=== PATIENT | male | born 1955 | race Caucasian/White ===

== ENCOUNTER 2016-11-11 09:58 | Emergency (ER) | payer OTHER ==
[~2016-11-11] VITALS: Ht 185.4 cm; Wt 81.6 kg
[~2016-11-11 09:58] MED LIST: AMITIZA24 MCG PO; AMOXICILLIN500 MG PO; AMOXIL500 M1 PO; ASPIRIN81 MG PO; AUGMENTIN 875 M1 TAB PO; BACTRIM DS 8001 TA1 PO; BACTROBAN OINT22 GM PO; CEPHALEXIN500 M1 PO; COMPAZINE10 MG PO; EES400 MG PO; ESIDREX,ORETIC,25 MG PO; FLONASE ALLERG9.9 ML NAS; HYDROCHLOROTHIA25 MG PO; LISINOPRIL10 M1 PO; LISINOPRIL10 MG PO; PLAVIX75 M1 PO; PLAVIX75 MG PO; PREDNICOT20 MG PO; PREDNISONE10 MG PO; PROTONIX40 MG PO; PROVENTIL0.09 MG/AC IH; RANITIDINE HCL150 M1 PO; RANITIDINE150 MG PO; ROBITUSSIN AC 110 ML PO; SUBOXONE 2 MG-1 EACH SL; SUBOXONE 8 MG-1 EACH SL; SUBOXONE PO; TYLENOL W/CODEI1 TA2 PO; ULTRAM50 MG PO; ZANTAC 150150 MG PO
[2016-11-11] MEDS ORDERED: ASPIRIN ADULT L81 M2 PO (10:14)
[2016-11-11] MEDS ORDERED: ZITHROMAX250 MG PO (11:29)
[2016-11-11] MEDS ORDERED: PROAIR HFA8.5 GM INH (11:29)
[2016-11-11] MEDS ORDERED: MEDROL DOSEPAK4 MG PO (11:29)
== END 2016-11-11 11:37 | disposition home or self-care (01) ==
LOC: ED 09:58
DX: J40 Bronchitis, not specified as acute or chronic (principal); F17.200 Nicotine dependence, unspecified, uncomplicated; Z79.899 Other long term (current) drug therapy; Z79.82 Long term (current) use of aspirin

== ENCOUNTER → 2017-01-15 | Outpatient (CLI) | payer OTHER ==
[~2017-01-15] MED LIST changes: +ASPIRIN ADULT L81 M2 PO; +MEDROL DOSEPAK4 MG PO; +PROAIR HFA8.5 GM INH; +ZITHROMAX250 MG PO
== END | disposition home or self-care (01) ==
LOC: US 01-03 11:00
DX: I73.9 Peripheral vascular disease, unspecified (principal); I10 Essential (primary) hypertension

== ENCOUNTER 2017-06-19 08:02 | Emergency (ER) | payer OTHER ==
[~2017-06-19] VITALS: Ht 185.4 cm; Wt 81.6 kg
[2017-06-19 08:53] LABS: BASO % 0.3 % (0.0-1.0); EOS # 0.1 10*3/uL (0.0-0.4); EOS % 0.5 % (1.0-4.0); HEMATOCRIT 41.9 % (42.0-52.0); HEMOGLOBIN 14.5 g/dl (14.0-18.0); LYMPH # 1.1 10*3/uL (1.3-4.4); MEAN CELL VOLUME 94.6 fl (80.0-94.0); MEAN CORPUSCULAR HGB 32.7 pg (27.0-31.0); MEAN CORPUSCULAR HGB CONC 34.6 g/dl (33.0-37.0); MEAN PLATELET VOLUME 9.6 fl (9.6-12.3); MONO # 1.4 10*3/uL (0.1-1.0); MONO % 10.4 % (3.0-9.0); NEUT # 10.7 10*3/uL (2.3-7.9); NEUT % 80.4 % (47.0-73.0); PLATELET COUNT AUTOMATED 261 10*3/uL (130-400); RED BLOOD COUNT 4.43 10*6/uL (4.50-5.90); RED CELL DISTRI WIDTH 12.5 % (0-14.5); WHITE BLOOD COUNT 13.3 10*3/uL (4.8-10.8)
[2017-06-19 09:01] LABS: ACT PARTIAL THROMBO TIME 28.6 SECONDS (20.8-31.5)
[2017-06-19 09:09] LABS: ALBUMIN 4.1 gm/dl (3.1-4.5); ALKALINE PHOSPHATASE 84 U/L (45-117); BUN 9 mg/dl (7-24); CHLORIDE 98 mmol/L (98-107); CKMB 1.4 ng/ml (0.5-3.6); CREATININE 0.92 mg/dL (0.70-1.30); LIPASE 176 U/L (73-393); POTASSIUM 4.3 mmol/L (3.5-5.1); SGOT/AST 14 IU/L (3-35); SGPT/ALT 21 U/L (12-78); SODIUM 136 mmol/L (136-145); TOTAL PROTEIN 8.4 gm/dL (6.4-8.2)
[2017-06-19 09:10] LABS: CPK 141 U/L (39-308)
[2017-06-19 09:14] LABS: TROPONIN I < 0.015 ng/ml (<0.045)
[2017-06-19] MEDS ORDERED: PREDNISONE50 MG PO (09:24)
[2017-06-19] MEDS ORDERED: ZITHROMAX250 MG PO (09:24)
== END 2017-06-19 10:11 | disposition home or self-care (01) ==
LOC: ED 08:02
PROVIDERS: Emergency Medicine
DX: J20.9 Acute bronchitis, unspecified (principal); F17.200 Nicotine dependence, unspecified, uncomplicated; Z79.82 Long term (current) use of aspirin; Z79.899 Other long term (current) drug therapy

== ENCOUNTER 2017-08-01 06:25 | Emergency (ER) | payer OTHER ==
[~2017-08-01] VITALS: Ht 185.4 cm; Wt 83.9 kg
[~2017-08-01 06:25] MED LIST changes: +PREDNISONE50 MG PO
[2017-08-01] MEDS ORDERED: MEDROL DOSEPAK4 MG PO (07:08)
[2017-08-01] MEDS ORDERED: AUGMENTIN 875-875 MG PO (07:08)
== END 2017-08-01 07:03 | disposition home or self-care (01) ==
LOC: ED 06:25
DX: J40 Bronchitis, not specified as acute or chronic (principal); J32.9 Chronic sinusitis, unspecified; Z79.82 Long term (current) use of aspirin; Z79.899 Other long term (current) drug therapy

== ENCOUNTER 2017-10-17 13:42 | Emergency (ER) | payer OTHER ==
[~2017-10-17] VITALS: Ht 185.4 cm; Wt 81.6 kg
[~2017-10-17 13:42] MED LIST changes: +AUGMENTIN 875-875 MG PO
[2017-10-17] MEDS ORDERED: OMNICEF300 MG PO (14:43)
== END 2017-10-17 14:51 | disposition home or self-care (01) ==
LOC: ED 13:42
DX: J32.0 Chronic maxillary sinusitis (principal); F17.200 Nicotine dependence, unspecified, uncomplicated; Z79.899 Other long term (current) drug therapy; Z79.82 Long term (current) use of aspirin

== ENCOUNTER 2017-12-17 11:17 | Emergency (ER) | payer OTHER ==
[~2017-12-17] VITALS: Ht 187.9 cm; Wt 86.2 kg
[~2017-12-17 11:17] MED LIST changes: +OMNICEF300 MG PO
[2017-12-17] MEDS ORDERED: AMOXICILLIN500 M2 PO (12:04)
== END 2017-12-17 12:11 | disposition home or self-care (01) ==
LOC: ED 11:17
DX: J02.9 Acute pharyngitis, unspecified (principal); F17.200 Nicotine dependence, unspecified, uncomplicated; Z79.899 Other long term (current) drug therapy; Z79.82 Long term (current) use of aspirin

== ENCOUNTER 2018-01-30 08:20 | Emergency (ER) | payer OTHER ==
[~2018-01-30] VITALS: Wt 83.9 kg
[~2018-01-30 08:20] MED LIST changes: +AMOXICILLIN500 M2 PO
[2018-01-30] MEDS ORDERED: ZITHROMAX250 MG PO (10:14)
[2018-01-30] MEDS ORDERED: PREDNISONE50 MG PO (10:14)
[2018-01-30] MEDS ORDERED: PROAIR HFA8.5 GM INH (10:15)
== END 2018-01-30 10:23 | disposition home or self-care (01) ==
LOC: ED 08:20
DX: J20.9 Acute bronchitis, unspecified (principal); Z79.82 Long term (current) use of aspirin; Z79.899 Other long term (current) drug therapy

== ENCOUNTER 2018-02-04 07:04 | Emergency (ER) | payer OTHER ==
[~2018-02-04] VITALS: Ht 185.4 cm; Wt 83.9 kg
[2018-02-04 08:07] LABS: BASO % 0.2 % (0.0-1.0); EOS # 0.1 10*3/uL (0.0-0.4); EOS % 0.6 % (1.0-4.0); HEMATOCRIT 45.1 % (42.0-52.0); HEMOGLOBIN 15.4 g/dl (14.0-18.0); LYMPH # 2.9 10*3/uL (1.3-4.4); LYMPH % 30.4 % (27.0-41.0); MEAN CELL VOLUME 95.3 fl (80.0-94.0); MEAN CORPUSCULAR HGB 32.6 pg (27.0-31.0); MEAN CORPUSCULAR HGB CONC 34.1 g/dl (33.0-37.0); MEAN PLATELET VOLUME 9.1 fl (9.6-12.3); MONO # 1.1 10*3/uL (0.1-1.0); NEUT # 5.5 10*3/uL (2.3-7.9); NEUT % 56.8 % (47.0-73.0); PLATELET COUNT AUTOMATED 328 10*3/uL (130-400); RED BLOOD COUNT 4.73 10*6/uL (4.50-5.90); RED CELL DISTRI WIDTH 12.6 % (0-14.5); WHITE BLOOD COUNT 9.7 10*3/uL (4.8-10.8)
[2018-02-04 08:18] LABS: ACT PARTIAL THROMBO TIME 25.3 SECONDS (20.8-31.5); INTERNATIONAL NORM RATIO 0.9 (2.0-3.5)
[2018-02-04 08:25] LABS: ALBUMIN 4.2 gm/dl (3.1-4.5); ALKALINE PHOSPHATASE 64 U/L (45-117); BUN 14 mg/dl (7-24); CHLORIDE 99 mmol/L (98-107); CREATININE 0.98 mg/dL (0.70-1.30); LIPASE 202 U/L (73-393); POTASSIUM 3.8 mmol/L (3.5-5.1); SGOT/AST 10 IU/L (3-35); SGPT/ALT 19 U/L (12-78); SODIUM 135 mmol/L (136-145); TOTAL PROTEIN 7.8 gm/dL (6.4-8.2)
[2018-02-04 08:29] LABS: TROPONIN I < 0.015 ng/ml (<0.045)
[2018-02-04] MEDS ORDERED: PREDNISONE10 MG PO (08:40)
[2018-02-04] MEDS ORDERED: GUAIFENESIN600 MG PO (08:40)
== END 2018-02-04 08:35 | disposition home or self-care (01) ==
LOC: ED 07:04
PROVIDERS: Emergency Medicine
DX: J20.9 Acute bronchitis, unspecified (principal); Z79.899 Other long term (current) drug therapy; Z79.82 Long term (current) use of aspirin

== ENCOUNTER 2018-06-22 13:48 | Emergency (ER) | payer OTHER ==
[~2018-06-22] VITALS: Ht 185.4 cm; Wt 83.9 kg
[~2018-06-22 13:48] MED LIST changes: +GUAIFENESIN600 MG PO
[2018-06-22] MEDS ORDERED: ZITHROMAX250 MG PO (14:07)
[2018-06-22] MEDS ORDERED: PREDNISONE10 MG PO (14:07)
== END 2018-06-22 15:55 | disposition home or self-care (01) ==
LOC: ED 13:48
DX: J02.9 Acute pharyngitis, unspecified (principal); R05 Cough; R06.2 Wheezing; R53.1 Weakness; J44.9 Chronic obstructive pulmonary disease, unspecified; F17.200 Nicotine dependence, unspecified, uncomplicated; Z79.899 Other long term (current) drug therapy; Z79.82 Long term (current) use of aspirin

== ENCOUNTER 2018-07-05 02:48 | Emergency (ER) | payer OTHER ==
[~2018-07-05] VITALS: Ht 185.4 cm; Wt 83.9 kg
== END 2018-07-05 03:29 | disposition home or self-care (01) ==
LOC: ED 02:48
DX: R04.0 Epistaxis (principal); F17.200 Nicotine dependence, unspecified, uncomplicated; Z79.899 Other long term (current) drug therapy; Z79.82 Long term (current) use of aspirin

== ENCOUNTER 2018-08-01 14:52 | Emergency (ER) | payer OTHER ==
[~2018-08-01] VITALS: Ht 185.4 cm; Wt 81.6 kg
[2018-08-01] MEDS ORDERED: DELTASONE20 M1 PO (15:07)
[2018-08-01] MEDS ORDERED: VIBRAMYCIN100 MG PO (15:07)
== END 2018-08-01 15:40 | disposition home or self-care (01) ==
LOC: ED 14:52
DX: J40 Bronchitis, not specified as acute or chronic (principal); R52 Pain, unspecified; F17.200 Nicotine dependence, unspecified, uncomplicated; Z79.2 Long term (current) use of antibiotics; Z79.82 Long term (current) use of aspirin; Z79.899 Other long term (current) drug therapy

== ENCOUNTER 2018-08-06 09:47 | Emergency (ER) | payer OTHER ==
[~2018-08-06] VITALS: Ht 185.4 cm; Wt 83.9 kg
[~2018-08-06 09:47] MED LIST changes: +DELTASONE20 M1 PO; +VIBRAMYCIN100 MG PO
[2018-08-06] MEDS ORDERED: PREDNISONE10 MG PO (10:08)
== END 2018-08-06 11:01 | disposition home or self-care (01) ==
LOC: ED 09:47
DX: J20.9 Acute bronchitis, unspecified (principal); Z79.899 Other long term (current) drug therapy; Z79.82 Long term (current) use of aspirin

== ENCOUNTER 2018-10-19 | Emergency (ER) | payer OTHER ==
[2018-10-19] MEDS ORDERED: FLONASE ALLERG9.9 ML NAS (09:38)
[2018-10-19] MEDS ORDERED: PREDNISONE10 MG PO (09:38)
[2018-10-19] MEDS ORDERED: CLARITIN10 MG PO (09:38)
[2019-03-19] MEDS ORDERED: ZITHROMAX250 MG PO (12:33)
[2019-03-19] MEDS ORDERED: PREDNISONE10 MG PO (12:33)
[2019-05-02] MEDS ORDERED: PREDNISONE50 MG PO (08:52)
== END 2018-10-19 11:04 | disposition home or self-care (01) ==
DX: J20.9 Acute bronchitis, unspecified (principal); R03.0 Elevated blood-pressure reading, without diagnosis of hypertension; F17.200 Nicotine dependence, unspecified, uncomplicated; Z79.899 Other long term (current) drug therapy; Z79.82 Long term (current) use of aspirin

== ENCOUNTER 2018-12-31 13:00 | Emergency (ER) | payer OTHER ==
[~2018-12-31] VITALS: Ht 185.4 cm; Wt 81.6 kg
[~2018-12-31 13:00] MED LIST changes: +CLARITIN10 MG PO
[2019-03-19] MEDS ORDERED: ZITHROMAX250 MG PO (12:33)
[2019-03-19] MEDS ORDERED: PREDNISONE10 MG PO (12:33)
[2019-05-02] MEDS ORDERED: PREDNISONE50 MG PO (08:52)
== END 2018-12-31 14:02 | disposition left against medical advice (07) ==
LOC: ED 13:00
DX: J02.9 Acute pharyngitis, unspecified (principal); R53.1 Weakness; R05 Cough; Z53.21 Procedure and treatment not carried out due to patient leaving prior to being seen by health care provider

== ENCOUNTER 2019-01-13 10:35 | Emergency (ER) | payer OTHER ==
[~2019-01-13] VITALS: Ht 185.4 cm; Wt 81.6 kg
[2019-01-13 11:16] LABS: HEMATOCRIT 47.8 % (42.0-52.0); HEMOGLOBIN 16.7 g/dl (14.0-18.0); MEAN CELL VOLUME 95.6 fl (80.0-94.0); MEAN CORPUSCULAR HGB 33.4 pg (27.0-31.0); MEAN CORPUSCULAR HGB CONC 34.9 g/dl (33.0-37.0); MEAN PLATELET VOLUME 9.2 fl (9.6-12.3); PLATELET COUNT AUTOMATED 316 10*3/uL (130-400); RED CELL DISTRI WIDTH 13.2 % (0-14.5); WHITE BLOOD COUNT 17.6 10*3/uL (4.8-10.8)
[2019-01-13 11:34] LABS: ALBUMIN 3.8 gm/dl (3.1-4.5); ALKALINE PHOSPHATASE 67 U/L (45-117); BUN 25 mg/dl (7-24); CHLORIDE 99 mmol/L (98-107); CREATININE 0.96 mg/dL (0.70-1.30); LIPASE 133 U/L (73-393); POTASSIUM 3.8 mmol/L (3.5-5.1); SGOT/AST 13 IU/L (3-35); SGPT/ALT 22 U/L (12-78); SODIUM 134 mmol/L (136-145); TOTAL PROTEIN 7.4 gm/dL (6.4-8.2)
[2019-01-13 11:38] LABS: PLATELET SUFFICIENCY NORMAL (NORMAL); TOTAL CELLS COUNTED 100 #CELLS
[2019-01-13 11:48] LABS: BILIRUBIN NEGATIVE (NEGATIVE); BLOOD TRACE-LYSED (NEGATIVE); CLARITY CLEAR (CLEAR); COLOR YELLOW (YELLOW); GLUCOSE NEGATIVE (NEGATIVE); KETONE TRACE (NEGATIVE); LEUKO ESTERASE NEGATIVE (NEGATIVE); NITRITE NEGATIVE (NEGATIVE); PH 5.5 (5.0-9.0); UROBILINOGEN 0.2 E.U./dl (0.2-1.0)
[2019-01-13 12:01] LABS: BACTERIA 1+; MUCOUS 2+; RBC 0-2 rbc/hpf (0-2)
[2019-01-13] MEDS ORDERED: ZOFRAN4 MG PO (12:38)
[2019-03-19] MEDS ORDERED: PREDNISONE10 MG PO (12:33)
[2019-03-19] MEDS ORDERED: ZITHROMAX250 MG PO (12:33)
[2019-05-02] MEDS ORDERED: PREDNISONE50 MG PO (08:52)
== END 2019-01-13 12:41 | disposition left against medical advice (07) ==
LOC: ED 10:35
PROVIDERS: Nurse Practitioner Family
DX: R11.2 Nausea with vomiting, unspecified (principal); R19.7 Diarrhea, unspecified; R10.32 Left lower quadrant pain; I10 Essential (primary) hypertension; F17.200 Nicotine dependence, unspecified, uncomplicated; Z79.82 Long term (current) use of aspirin; Z79.899 Other long term (current) drug therapy; Z86.73 Personal history of transient ischemic attack (TIA), and cerebral infarction without residual deficits

== ENCOUNTER 2019-07-14 08:07 | Emergency (ER) | payer OTHER ==
[~2019-07-14] VITALS: Ht 185.4 cm; Wt 81.6 kg
[~2019-07-14 08:07] MED LIST changes: +ZOFRAN4 MG PO
== END 2019-07-14 09:07 | disposition left against medical advice (07) ==
LOC: ED 08:07
DX: R05 Cough (principal); R52 Pain, unspecified; J44.9 Chronic obstructive pulmonary disease, unspecified; I10 Essential (primary) hypertension; Z79.899 Other long term (current) drug therapy; Z79.82 Long term (current) use of aspirin

== ENCOUNTER 2019-11-14 09:19 | Emergency (ER) | payer OTHER ==
[~2019-11-14] VITALS: Ht 185.4 cm; Wt 79.4 kg
[2019-11-14] MEDS ORDERED: ZITHROMAX250 MG PO (09:32)
[2019-11-14] MEDS ORDERED: MEDROL DOSEPAK4 MG PO (09:32)
== END 2019-11-14 09:38 | disposition home or self-care (01) ==
LOC: ED 09:19
DX: J44.9 Chronic obstructive pulmonary disease, unspecified (principal); I10 Essential (primary) hypertension; I73.9 Peripheral vascular disease, unspecified; F17.200 Nicotine dependence, unspecified, uncomplicated; Z79.899 Other long term (current) drug therapy; Z79.2 Long term (current) use of antibiotics; Z79.82 Long term (current) use of aspirin; Z86.73 Personal history of transient ischemic attack (TIA), and cerebral infarction without residual deficits

== ENCOUNTER 2019-11-20 09:28 | Emergency (ER) | payer OTHER ==
[~2019-11-20] VITALS: Ht 185.4 cm; Wt 79.4 kg
[2019-11-20] MEDS ORDERED: DOXYCYCLINE100 M3 PO (10:32)
[2019-11-20] MEDS ORDERED: PROVENTIL HFA6.7 GM INH (10:32)
[2019-11-20] MEDS ORDERED: TESSALON PERLE100 M1 PO (10:32)
[2019-11-20] MEDS ORDERED: PREDNISONE10 MG PO (10:32)
== END 2019-11-20 10:57 | disposition home or self-care (01) ==
LOC: ED 09:28
DX: J18.9 Pneumonia, unspecified organism (principal); I10 Essential (primary) hypertension; J44.9 Chronic obstructive pulmonary disease, unspecified; I73.9 Peripheral vascular disease, unspecified; F17.200 Nicotine dependence, unspecified, uncomplicated; Z79.899 Other long term (current) drug therapy; Z79.2 Long term (current) use of antibiotics; Z79.82 Long term (current) use of aspirin; Z86.73 Personal history of transient ischemic attack (TIA), and cerebral infarction without residual deficits

== ENCOUNTER 2020-02-19 14:13 | Emergency (ER) | payer OTHER ==
[~2020-02-19] VITALS: Ht 185.4 cm; Wt 81.6 kg
[~2020-02-19 14:13] MED LIST changes: +DOXYCYCLINE100 M3 PO; +PROVENTIL HFA6.7 GM INH; +TESSALON PERLE100 M1 PO
[2020-02-19] MEDS ORDERED: CEPHALEXIN500 M1 PO (14:37)
== END 2020-02-19 14:37 | disposition home or self-care (01) ==
LOC: ED 14:13
DX: L03.90 Cellulitis, unspecified (principal); I10 Essential (primary) hypertension; J44.9 Chronic obstructive pulmonary disease, unspecified; Z79.899 Other long term (current) drug therapy; Z79.2 Long term (current) use of antibiotics

== ENCOUNTER 2021-05-08 10:35 | Emergency (ER) | payer OTHER ==
[~2021-05-08] VITALS: Wt 81.6 kg
[2021-05-08 11:36] LABS: BASO % 0.3 % (0.0-1.0); EOS % 0.3 % (1.0-4.0); HEMATOCRIT 43.5 % (42.0-52.0); LYMPH # 1.3 10*3/uL (1.3-4.4); LYMPH % 14.4 % (27.0-41.0); MEAN CELL VOLUME 95.2 fl (80.0-94.0); MEAN CORPUSCULAR HGB CONC 34.7 g/dl (33.0-37.0); MEAN PLATELET VOLUME 9.1 fl (9.6-12.3); MONO # 1.3 10*3/uL (0.1-1.0); MONO % 14.1 % (3.0-9.0); NEUT # 6.4 10*3/uL (2.3-7.9); NEUT % 70.5 % (47.0-73.0); PLATELET COUNT AUTOMATED 305 10*3/uL (130-400); RED BLOOD COUNT 4.57 10*6/uL (4.50-5.90); RED CELL DISTRI WIDTH 12.6 % (0-14.5); WHITE BLOOD COUNT 9.1 10*3/uL (4.8-10.8)
[2021-05-08 11:51] LABS: ALBUMIN 3.7 gm/dl (3.1-4.5); ALKALINE PHOSPHATASE 86 U/L (45-117); BUN 11 mg/dl (7-24); CHLORIDE 102 mmol/L (98-107); CREATININE 0.91 mg/dL (0.70-1.30); SGOT/AST 16 IU/L (3-35); SGPT/ALT 21 U/L (12-78); SODIUM 133 mmol/L (136-145); TOTAL PROTEIN 7.6 gm/dL (6.4-8.2)
[2021-05-08 11:53] LABS: TROPONIN I < 0.015 ng/ml (<0.045)
== END 2021-05-08 12:48 | disposition home or self-care (01) ==
LOC: ED 10:35
PROVIDERS: Physician Assistant
DX: R20.2 Paresthesia of skin (principal); Z86.73 Personal history of transient ischemic attack (TIA), and cerebral infarction without residual deficits; Z79.82 Long term (current) use of aspirin; Z79.899 Other long term (current) drug therapy

== ENCOUNTER 2021-11-01 10:48 | Emergency (ER) | payer OTHER ==
[~2021-11-01] VITALS: Wt 81.6 kg
== END 2021-11-01 13:31 | disposition home or self-care (01) ==
LOC: ED 10:48
DX: J02.9 Acute pharyngitis, unspecified (principal); Z79.899 Other long term (current) drug therapy; Z79.82 Long term (current) use of aspirin

== ENCOUNTER → 2021-11-01 | Outpatient (CLI) | payer OTHER | END | disposition home or self-care (01) | LOC: COVID19 17:04 | PROVIDERS: ATTEND Internal Medicine | DX: U07.1 COVID-19 (principal) ==

== ENCOUNTER 2023-11-18 17:04 | Emergency (ER) | payer OTHER ==
[~2023-11-18] VITALS: Ht 185.4 cm; Wt 81.6 kg
[2023-11-18 18:44] LABS: BASO % 0.4 % (0.0-1.0); EOS % 0.5 % (1.0-4.0); LYMPH # 0.4 10*3/uL (1.3-4.4); LYMPH % 4.9 % (27.0-41.0); MEAN CELL VOLUME 96.8 fl (80.0-94.0); MEAN CORPUSCULAR HGB 32.3 pg (27.0-31.0); MEAN CORPUSCULAR HGB CONC 33.3 g/dl (33.0-37.0); MEAN PLATELET VOLUME 9.1 fl (9.6-12.3); MONO # 0.8 10*3/uL (0.1-1.0); MONO % 10.7 % (3.0-9.0); NEUT # 6.3 10*3/uL (2.3-7.9); NEUT % 83.2 % (47.0-73.0); PLATELET COUNT AUTOMATED 299 10*3/uL (130-400); RED BLOOD COUNT 4.34 10*6/uL (4.50-5.90); RED CELL DISTRI WIDTH 12.6 % (0-14.5); WHITE BLOOD COUNT 7.6 10*3/uL (4.8-10.8)
[2023-11-18 19:04] LABS: ALKALINE PHOSPHATASE 83 U/L (46-116); BUN 16 mg/dl (9-23); CHLORIDE 101 mmol/L (98-107); POTASSIUM 4.2 mmol/L (3.4-5.1); SGPT/ALT 18 U/L (5-49); TOTAL PROTEIN 7.5 gm/dL (6.0-8.0)
[2023-11-18] MEDS ORDERED: PREDNISONE50 MG PO (20:06)
[2023-11-18] MEDS ORDERED: AVPAK AZITHROM250 M1 PO (20:06)
== END 2023-11-18 20:27 | disposition home or self-care (01) ==
LOC: ED 17:04
PROVIDERS: Physician Assistant Medical
DX: J44.1 Chronic obstructive pulmonary disease with (acute) exacerbation (principal); Z20.822 Contact with and (suspected) exposure to COVID-19; I10 Essential (primary) hypertension; Z98.890 Other specified postprocedural states; F17.210 Nicotine dependence, cigarettes, uncomplicated

== ENCOUNTER → 2025-01-14 | Outpatient (CLI) | payer OTHER ==
[~2025-01-14] MED LIST changes: +AVPAK AZITHROM250 M1 PO
== END | disposition home or self-care (01) ==
LOC: LAB 14:06
PROVIDERS: ATTEND Nurse Practitioner Family
DX: I65.23 Occlusion and stenosis of bilateral carotid arteries (principal)

== ENCOUNTER 2025-01-22 10:24 | Emergency (ER) | payer OTHER ==
[~2025-01-22] VITALS: Ht 185.4 cm; Wt 79.4 kg
[2025-01-22] MEDS ORDERED: Lopressor25 MG PO (11:21)
[2025-01-22] MEDS ORDERED: Albuterol Sulf/Ipratropium 3 ML VIAL NEB ONE (11:30)
[2025-01-22] MEDS ORDERED: methylPREDNISolone sod succ 125 MG VIAL IM ONE (11:30)
[2025-01-22 12:06] LABS: BASO % 0.2 % (0.0-1.0); HEMATOCRIT 45.1 % (42.0-52.0); MEAN CELL VOLUME 95.3 fl (80.0-94.0); MEAN CORPUSCULAR HGB 32.1 pg (27.0-31.0); MEAN CORPUSCULAR HGB CONC 33.7 g/dl (33.0-37.0); MEAN PLATELET VOLUME 8.9 fl (9.6-12.3); MONO % 9.5 % (3.0-9.0); NEUT # 8.4 10*3/uL (2.3-7.9); NEUT % 81.1 % (47.0-73.0); PLATELET COUNT AUTOMATED 347 10*3/uL (130-400); RED BLOOD COUNT 4.73 10*6/uL (4.50-5.90); RED CELL DISTRI WIDTH 12.6 % (0-14.5); WHITE BLOOD COUNT 10.3 10*3/uL (4.8-10.8)
[2025-01-22 12:31] LABS: BUN 10 mg/dl (9-23); CHLORIDE 93 mmol/L (98-107); POTASSIUM 4.1 mmol/L (3.4-5.1)
== END 2025-01-22 13:10 | disposition home or self-care (01) ==
LOC: ED 10:24
PROVIDERS: Physician Assistant Medical
DX: J44.1 Chronic obstructive pulmonary disease with (acute) exacerbation (principal); Z20.822 Contact with and (suspected) exposure to COVID-19; I10 Essential (primary) hypertension; F17.200 Nicotine dependence, unspecified, uncomplicated; Z79.899 Other long term (current) drug therapy; Z79.82 Long term (current) use of aspirin; Z95.820 Peripheral vascular angioplasty status with implants and grafts

== ENCOUNTER 2025-01-26 12:42 | Inpatient (IN) | payer OTHER ==
[~2025-01-26] VITALS: Ht 185.4 cm; Wt 79.0 kg
[~2025-01-26 12:42] MED LIST changes: +Lopressor25 MG PO
[2025-01-26 12:54] VITALS: BP 150/76
[2025-01-26] MEDS ORDERED: SODIUM CHLORIDE 0.9% 1,000 ML IV ONE (13:05)
[2025-01-26] MEDS ORDERED: Albuterol Sulf/Ipratropium 3 ML VIAL NEB ONE (13:05)
[2025-01-26] MEDS ORDERED: methylPREDNISolone sod succ 125 MG VIAL IV ONE (13:05)
[2025-01-26 13:21] LABS: HEMATOCRIT 46.2 % (42.0-52.0); MEAN CELL VOLUME 92.2 fl (80.0-94.0); MEAN CORPUSCULAR HGB 32.9 pg (27.0-31.0); MEAN CORPUSCULAR HGB CONC 35.7 g/dl (33.0-37.0); MEAN PLATELET VOLUME 8.8 fl (9.6-12.3); PLATELET COUNT AUTOMATED 419 10*3/uL (130-400); RED BLOOD COUNT 5.01 10*6/uL (4.50-5.90); RED CELL DISTRI WIDTH 12.1 % (0-14.5); WHITE BLOOD COUNT 10.7 10*3/uL (4.8-10.8)
[2025-01-26] MEDS ORDERED: BREYNA 160-4.10.3 GM INH (13:21)
[2025-01-26] MEDS ORDERED: SPIRIVA RESPIMAT4 GM INH (13:22)
[2025-01-26 13:24] LABS: MANUAL DIFF REFLEX YES
[2025-01-26 13:43] LABS: BUN 14 mg/dl (9-23); CHLORIDE 88 mmol/L (98-107); CPK 78 U/L (34-171); POTASSIUM 3.3 mmol/L (3.4-5.1)
[2025-01-26 13:45] LABS: ATYPICAL LYMPHS 2 % (0-0); TOTAL CELLS COUNTED 100 #CELLS
[2025-01-26 13:46] LABS: PLATELET SUFFICIENCY NORMAL (NORMAL)
[2025-01-26] MEDS ORDERED: Ondansetron Hydrochloride 4 MG/2 ML VIAL IV PRN (15:50)
[2025-01-26] MEDS ORDERED: MORPHINE Sulfate 2 MG/ML SYR IV PRN (15:50)
[2025-01-26] MEDS ORDERED: Acetaminophen/Hydrocodone 5 MG/325 MG TABLET PO PRN (15:50)
[2025-01-26] MEDS ORDERED: ATORVASTATIN CA10 M1 PO (15:59)
[2025-01-26] MEDS ORDERED: DOCUSATE SOD100 MG PO (16:00)
[2025-01-26] MEDS ORDERED: Albuterol Sulf/Ipratropium 3 ML VIAL NEB SCH (16:00)
[2025-01-26] MEDS ORDERED: diazePAM 10 MG/2 ML SYR IV ONE (16:00)
[2025-01-26] MEDS ORDERED: POTASSIUM CHLORIDE 20 MEQ TAB PO ONE (16:10)
[2025-01-26] MEDS ORDERED: cefTRIAXone Sodium 10 ML IV ONE (16:10)
[2025-01-26 16:43] LABS: BILIRUBIN Negative (Negative); BLOOD Negative (Negative); CLARITY Clear (Clear); COLOR Yellow (Yellow); GLUCOSE Trace (Negative); KETONE Trace (Negative); LEUKO ESTERASE Trace (Negative); NITRITE Negative (Negative); PH 6.5 (4.5-8.0)
[2025-01-26] MEDS ORDERED: AZITHROMYCIN 250 ML IV SCH (17:00)
[2025-01-26 17:20] VITALS: BP 171/89
[2025-01-26 17:36] VITALS: BP 175/78
[2025-01-26] MEDS ORDERED: BUPRENORPHINE HCL/NALOXONE 8 MG-2 MG SL TABLET SL SCH (18:00)
[2025-01-26] MEDS ORDERED: Lubiprostone 24 MCG CAP PO SCH (18:00)
[2025-01-26 20:00] VITALS: BP 150/68
[2025-01-26] MEDS ORDERED: methylPREDNISolone sod succ 40 MG VIAL IV SCH (22:00)
[2025-01-26] MEDS ORDERED: Metoprolol Tartrate 25 MG TAB PO SCH (22:00)
[2025-01-26] MEDS ORDERED: GUAIFENESIN 600 MG TAB ER PO SCH (22:00)
[2025-01-26] MEDS ORDERED: Nicotine 21 MG PATCH T SCH (22:15)
[2025-01-27] VITALS: BP 164/88
[2025-01-27] MEDS ORDERED: Pantoprazole Sodium 40 MG TAB PO SCH (06:00)
[2025-01-27 06:15] LABS: BUN 13 mg/dl (9-23); CHLORIDE 93 mmol/L (98-107); CHOLESTEROL 148 mg/dL (<200); LDL CHOLESTEROL 75 mg/dL (9-159); POTASSIUM 3.2 mmol/L (3.4-5.1); SGPT/ALT 12 U/L (5-49); TOTAL PROTEIN 7.1 gm/dL (6.0-8.0); TRIGLYCERIDES 54 mg/dl (<150)
[2025-01-27 06:16] LABS: ALKALINE PHOSPHATASE 71 U/L (46-116)
[2025-01-27 06:22] LABS: BASO % 0.1 % (0.0-1.0); HEMATOCRIT 43.3 % (42.0-52.0); MEAN CELL VOLUME 92.9 fl (80.0-94.0); MEAN CORPUSCULAR HGB 33.3 pg (27.0-31.0); MEAN CORPUSCULAR HGB CONC 35.8 g/dl (33.0-37.0); MEAN PLATELET VOLUME 9.4 fl (9.6-12.3); MONO # 1.4 10*3/uL (0.1-1.0); MONO % 8.5 % (3.0-9.0); NEUT # 13.8 10*3/uL (2.3-7.9); NEUT % 84.4 % (47.0-73.0); PLATELET COUNT AUTOMATED 383 10*3/uL (130-400); RED BLOOD COUNT 4.66 10*6/uL (4.50-5.90); RED CELL DISTRI WIDTH 12.3 % (0-14.5); WHITE BLOOD COUNT 16.3 10*3/uL (4.8-10.8)
[2025-01-27] MEDS ORDERED: POTASSIUM CHLORIDE 20 MEQ TAB PO ONE (07:05)
[2025-01-27 08:00] VITALS: BP 177/90
[2025-01-27] MEDS ORDERED: SODIUM CHLORIDE 0.9% 1,000 ML IV ONE (08:10)
[2025-01-27] MEDS ORDERED: Clopidogrel Hydrogen Sulfate 75 MG TAB PO SCH (10:00)
[2025-01-27] MEDS ORDERED: Nicotine 21 MG PATCH T SCH (10:00)
[2025-01-27] MEDS ORDERED: ASPIRIN ENTERIC COATED 81 MG TAB PO SCH (10:00)
[2025-01-27] MEDS ORDERED: DOCUSATE SODIUM 100 MG CAP PO SCH (10:00)
[2025-01-27] MEDS ORDERED: Enoxaparin Sodium 40 MG/0.4 ML SYR SC SCH (10:00)
[2025-01-27 12:00] VITALS: BP 169/80
[2025-01-27 16:00] VITALS: BP 157/85
[2025-01-27] MEDS ORDERED: cefTRIAXone Sodium 1 GM in SYRINGE INFUSION 10 ML IV SCH (16:00)
[2025-01-27] MEDS ORDERED: AZITHROMYCIN 250 ML IV SCH (17:00)
[2025-01-27 20:00] VITALS: BP 157/88
[2025-01-28] VITALS: BP 175/86
[2025-01-28 06:17] LABS: BASO % 0.1 % (0.0-1.0); HEMATOCRIT 45.3 % (42.0-52.0); MEAN CELL VOLUME 93.2 fl (80.0-94.0); MEAN CORPUSCULAR HGB 32.5 pg (27.0-31.0); MEAN CORPUSCULAR HGB CONC 34.9 g/dl (33.0-37.0); MEAN PLATELET VOLUME 9.4 fl (9.6-12.3); MONO # 1.2 10*3/uL (0.1-1.0); MONO % 9.7 % (3.0-9.0); NEUT # 9.8 10*3/uL (2.3-7.9); NEUT % 81.6 % (47.0-73.0); PLATELET COUNT AUTOMATED 375 10*3/uL (130-400); RED BLOOD COUNT 4.86 10*6/uL (4.50-5.90); RED CELL DISTRI WIDTH 12.1 % (0-14.5); WHITE BLOOD COUNT 12.1 10*3/uL (4.8-10.8)
[2025-01-28 06:37] LABS: BUN 12 mg/dl (9-23); CHLORIDE 94 mmol/L (98-107)
[2025-01-28 08:00] VITALS: BP 196/76
[2025-01-28] MEDS ORDERED: amLODIPine besylate 5 MG TAB PO SCH (10:00)
[2025-01-28] MEDS ORDERED: ATORVASTATIN CALCIUM 10 MG TAB PO SCH (10:00)
[2025-01-28 12:00] VITALS: BP 174/88
[2025-01-28 16:00] VITALS: BP 170/77
[2025-01-28 20:00] VITALS: BP 155/99
[2025-01-29] VITALS: BP 184/87
[2025-01-29 06:10] LABS: BUN 14 mg/dl (9-23); CHLORIDE 93 mmol/L (98-107); POTASSIUM 3.9 mmol/L (3.4-5.1)
[2025-01-29 08:00] VITALS: BP 172/67
[2025-01-29 12:00] VITALS: BP 156/70
[2025-01-29 16:00] VITALS: BP 158/70
[2025-01-29 20:00] VITALS: BP 162/96
[2025-01-30] VITALS: BP 178/100
[2025-01-30 06:05] LABS: BASO % 0.2 % (0.0-1.0); EOS % 0.1 % (1.0-4.0); HEMATOCRIT 47.7 % (42.0-52.0); MEAN CELL VOLUME 93.5 fl (80.0-94.0); MEAN CORPUSCULAR HGB 33.3 pg (27.0-31.0); MEAN CORPUSCULAR HGB CONC 35.6 g/dl (33.0-37.0); MEAN PLATELET VOLUME 9.3 fl (9.6-12.3); MONO # 1.4 10*3/uL (0.1-1.0); MONO % 10.9 % (3.0-9.0); NEUT # 10.2 10*3/uL (2.3-7.9); NEUT % 77.4 % (47.0-73.0); PLATELET COUNT AUTOMATED 385 10*3/uL (130-400); RED CELL DISTRI WIDTH 12.2 % (0-14.5); WHITE BLOOD COUNT 13.1 10*3/uL (4.8-10.8)
[2025-01-30 06:08] LABS: BUN 18 mg/dl (9-23); CHLORIDE 93 mmol/L (98-107); POTASSIUM 4.4 mmol/L (3.4-5.1)
[2025-01-30 08:00] VITALS: BP 184/68
[2025-01-30 12:00] VITALS: BP 146/59
[2025-01-30] MEDS ORDERED: MUCUS RELIEF E600 MG PO (13:55)
[2025-01-30] MEDS ORDERED: AMLODIPINE BESYL5 MG PO (13:55)
[2025-01-30] MEDS ORDERED: PREDNISONE10 MG PO (13:55)
[2025-01-30] MEDS ORDERED: ZITHROMAX250 MG PO (13:55)
== END 2025-01-30 15:19 | disposition home health service (06) | DRG 191 ==
LOC: ED 12:42 → EDHOLD 15:34 → 4E 15:34 → EDHOLD 16:01 → 4E 17:21
PROVIDERS: Internal Medicine; Physician Assistant Medical; ADMIT Internal Medicine; ATTEND Internal Medicine
DX: J44.1 Chronic obstructive pulmonary disease with (acute) exacerbation (principal); E87.1 Hypo-osmolality and hyponatremia; E87.6 Hypokalemia; D75.839 Thrombocytosis, unspecified; R73.9 Hyperglycemia, unspecified; I10 Essential (primary) hypertension; F17.210 Nicotine dependence, cigarettes, uncomplicated; R91.1 Solitary pulmonary nodule; I48.91 Unspecified atrial fibrillation; F10.20 Alcohol dependence, uncomplicated; Y90.9 Presence of alcohol in blood, level not specified; I73.9 Peripheral vascular disease, unspecified; Z20.822 Contact with and (suspected) exposure to COVID-19; Z82.3 Family history of stroke; Z79.899 Other long term (current) drug therapy

== ENCOUNTER 2025-05-17 10:37 | Emergency (ER) | payer OTHER ==
[~2025-05-17 10:37] MED LIST changes: +AMLODIPINE BESYL5 MG PO; +AMMONIUM LACTA385 GM T; +ASPIRIN CHEWABL81 MG PO; +ATORVASTATIN CA10 M1 PO; +BREYNA 160-4.10.3 GM INH; +BUDESONIDE-FO10.2 G1 INH; +CILOSTAZOL100 MG PO; +CLOPIDOGREL75 MG PO; +DOCUSATE SOD100 MG PO; +LIPITOR10 MG PO; +LOPRESSOR25 MG PO; +LUBIPROSTONE24 MCG PO; +MUCUS RELIEF E600 MG PO; +PROTONIX20 MG PO; +SPIRIVA RESPIMAT4 GM INH; +VENT7GM INH
[2025-05-17] MEDS ORDERED: Lactated Ringer's Solution 1,000 ML IV SCH (10:40)
[2025-05-17] MEDS ORDERED: SODIUM CHLORIDE 0.9% 1,000 ML IV ONE (10:40)
[2025-05-17] MEDS ORDERED: Amiodarone Hydrochloride 900 MG in DEXTROSE 5% 500 ML IV SCH (10:55)
[2025-05-17] MEDS ORDERED: PROPOFOL 50 ML IV ONE ×2 (11:19→13:46)
[2025-05-17 11:57] LABS: MANUAL DIFF REFLEX YES; MEAN CELL VOLUME 95.5 fl (80.0-94.0); MEAN CORPUSCULAR HGB 32.7 pg (27.0-31.0); MEAN PLATELET VOLUME 8.8 fl (9.6-12.3); NUCLEATED RED BLOOD CELL 0.0 % (0.0-0.0); NUCLEATED RED BLOOD CELL 0.0 10*3/uL (0.0-0.0); PLATELET COUNT AUTOMATED 369 10*3/uL (130-400); RED CELL DISTRI WIDTH 13.1 % (0-14.5)
[2025-05-17 12:04] LABS: ABG O2 SATURATION 99.8 % (94.0-98.0); ARTERIAL BLOOD GAS PH 7.331 (7.350-7.450)
[2025-05-17 12:05] LABS: ABG BASE EXCESS -2.8 mmol/L (-2.0-3.0)
[2025-05-17 12:07] LABS: BILIRUBIN Negative (Negative); BLOOD 3+ (Negative); CLARITY Clear (Clear); COLOR Yellow (Yellow); KETONE Negative (Negative); LEUKO ESTERASE Negative (Negative); NITRITE Negative (Negative); PH 7.0 (4.5-8.0); SPECIFIC GRAVITY 1.015 (1.001-1.030); UROBILINOGEN 0.2 E.U./dl (0.0-1.0)
[2025-05-17 12:08] LABS: ACT PARTIAL THROMBO TIME 27.9 SECONDS (20.0-32.1)
[2025-05-17 12:09] LABS: ARTERIAL BLOOD GAS PO2 582.1 mmHg (83.0-108.0)
[2025-05-17 12:14] LABS: BUN 10 mg/dl (9-23)
[2025-05-17 12:16] LABS: PLATELET SUFFICIENCY NORMAL (NORMAL)
[2025-05-17] MEDS ORDERED: POTASSIUM CHLORIDE 100 ML IV ONE (13:40)
[2025-05-17] MEDS ORDERED: ROCURONIUM BROMIDE 50 MG/5 ML SYRINGE IV ONE (14:14)
[2025-05-17] MEDS ORDERED: ETOMIDATE 20 MG/10 ML VIAL IV ONE (14:14)
[2025-05-19] MEDS ORDERED: Lidocaine Hydrochloride 2% 5 ML SDV IM ONE (07:17)
[2025-05-19] MEDS ORDERED: Amiodarone Hydrochloride 150 MG/3 ML VIAL IV ONE (07:17)
== END 2025-05-17 13:51 | disposition short-term general hospital (02) ==
LOC: ED 10:37
PROVIDERS: Emergency Medicine
DX: J96.90 Respiratory failure, unspecified, unspecified whether with hypoxia or hypercapnia (principal); E87.6 Hypokalemia; E87.1 Hypo-osmolality and hyponatremia; I47.20 Ventricular tachycardia, unspecified; J44.9 Chronic obstructive pulmonary disease, unspecified; I10 Essential (primary) hypertension; R11.10 Vomiting, unspecified; R19.7 Diarrhea, unspecified; F17.210 Nicotine dependence, cigarettes, uncomplicated; Z79.899 Other long term (current) drug therapy; Z79.82 Long term (current) use of aspirin; Z86.73 Personal history of transient ischemic attack (TIA), and cerebral infarction without residual deficits